=== PATIENT | female | born 1955 | race Caucasian/White ===

== ENCOUNTER 2024-01-12 08:10 | Day surgery (SDC) | payer OTHER, BC ==
[2024-01-09 08:53] VITALS: BMI 26.0
[2024-01-12 08:26] VITALS: RESP 18
[2024-01-12 09:08] VITALS: TEMP 97.8
[2024-01-12 09:40] VITALS: BP 114/54; PULSE 60
== END 2024-01-12 09:40 | disposition home or self-care (01) ==
LOC: FASU-ENDO 08:10
PROVIDERS: ATTEND Internal Medicine Gastroenterology
PROC: 0DBL8ZX Excision of Transverse Colon, Via Natural or Artificial Opening Endoscopic, Diagnostic (ICD-10-PCS; principal; 2024-01-12 08:49)
DX: Z12.11 Encounter for screening for malignant neoplasm of colon (principal); K63.5 Polyp of colon; K63.89 Other specified diseases of intestine
CPT/HCPCS: 88305-TC